=== PATIENT | male | born 1955 | race Caucasian/White ===

== ENCOUNTER 2023-12-04 17:07 | Inpatient (IN) | payer SELFPAY ==
[~2023-12-04] VITALS: Ht 185.4 cm; Wt 112.6 kg
[2023-12-04 17:50] LABS: BASO % 0.5 % (0.0-2.0); EOS # 0.1 K/mm3 (0.0-0.7); EOS % 0.9 % (0.0-4.0); GRAN # 5.9 K/mm3 (1.4-6.5); GRAN % 77.5 % (42.2-75.2); HEMATOCRIT 51.1 % (42.0-52.0); HEMOGLOBIN 16.6 g/dl (13.5-18.0); LYMPH # 0.9 K/mm3 (1.2-3.4); LYMPH % 12.2 % (20.0-51.0); MEAN CELL VOLUME 88 fl (80.0-100.0); MEAN CORPUSCULAR HEMOGLOBIN 28 pg (27-31); MEAN CORPUSCULAR HGB CONC 33 g/dl (33.0-37.0); MEAN PLATELET VOLUME 11.8 fl (7.4-10.4); MONO # 0.7 K/mm3 (0.1-0.6); MONO % 8.6 % (1.7-9.3); PLATELET COUNT 234 K/mm3 (130-400); RED BLOOD COUNT 5.84 M/mm3 (4.20-5.60); REDCELL DISTRIBUTION WIDTH-CV 17.2 % (11.5-14.5)
[2023-12-04 18:03] LABS: ALBUMIN 3.7 g/dL (3.4-4.8); BILIRUBIN,TOTAL 1.8 mg/dL (0.2-1.2); CALCIUM 9.5 mg/dL (8.4-10.2); CREATININE, serum 1.23 mg/dL (0.72-1.25); POTASSIUM 4.1 mEq/L (3.5-4.5); TOTAL PROTEIN 6.7 g/dl (6.2-8.1)
[2023-12-04 18:10] LABS: TROPONIN-I 0.124 ng/mL (0.00-0.033)
[2023-12-04] MEDS ORDERED: Furosemide 40 MG/4 ML VIAL IV ONE (18:45)
[2023-12-04] MEDS ORDERED: Nitroglycerin 2% Topical Oint 1 GM UD TD ONE (19:00)
[2023-12-04] MEDS ORDERED: Ondansetron 4 MG/2 ML VIAL IV PRN (19:15)
[2023-12-04] MEDS ORDERED: Docusate Sodium 100 MG CAP PO PRN (19:15)
[2023-12-04] MEDS ORDERED: Acetaminophen 325 MG TAB PO PRN (19:15)
[2023-12-04] MEDS ORDERED: Polyethylene Glycol 3350 17 GM PDS PO PRN (19:15)
[2023-12-04] MEDS ORDERED: Lisinopril 20 MG TAB PO SCH (20:20)
[2023-12-04 22:50] VITALS: BP 180/117; PULSE 96; TEMP 98.5
[2023-12-04] MEDS ORDERED: LASIX 20MG TABL20 MG PO (22:51)
[2023-12-04] MEDS ORDERED: Metoprolol Tartrate 5 MG/5 ML VIAL IV ONE (23:00)
--- NOTE | 2023-12-04 23:24 | NUR ---
pt arrived to room 348 from ED at 2250. pt ambulated to bed independently without issue. pt noted to have dyspnea on exertion but not at rest. pt LSCTA except diminished in bases. pt alert and oriented x4. pt abd noted to be firm, distended, and red. pt pedal pulses audible with doppler but not palpable d/t BLE +2 pitting edema. BLE noted to be red as well but pt reports this as normal after wearing TEDS. pt IV INT to L AC. admission, physical assessment, and med rec complete. pt noted to have HTN of 180/117. updated hospitalist, Seven SENIOR FINANCE MANAGER. New order for 5mg IV Metoprolol now, administered per orders. pt denies pain. call light in reach. all needs met at this time.
--- NOTE | 2023-12-04 23:32 | NUR ---
critical trop of 0.113 called to hospitalist ELECTRICIAN CONSTRUCTOR SUPERVISORSeven.
[2023-12-05] VITALS (16 sets, daily range): BP systolic 160–188; BP diastolic 94–136; PULSE 71–88; TEMP 97.4–98.2
[2023-12-05] MEDS ORDERED: Heparin 5,000 UNITS/ML 1 ML VIAL SQ SCH
--- NOTE | 2023-12-05 05:23 | NUR ---
pt HTN reported to hospitalist TALENT ACQUISITION PARTNER Seven. TALENT ACQUISITION PARTNER stated to give 0900 Lisinopril now. administered per TALENT ACQUISITION PARTNER orders.
[2023-12-05] MEDS ORDERED: Furosemide 40 MG/4 ML VIAL IV SCH ×2 (05:52→14:00)
--- NOTE | 2023-12-05 06:07 | NUR ---
updated hospitalist TIMBER PACKER Seven on pt BP.
[2023-12-05 06:43] LABS: ALBUMIN 3.3 g/dL (3.4-4.8); CALCIUM 8.8 mg/dL (8.4-10.2); CREATININE, serum 1.16 mg/dL (0.72-1.25); POTASSIUM 3.9 mEq/L (3.5-4.5); TOTAL PROTEIN 5.7 g/dl (6.2-8.1)
[2023-12-05 07:09] LABS: BILIRUBIN,TOTAL 1.2 mg/dL (0.2-1.2)
[2023-12-05] MEDS ORDERED: hydrALAZINE 20 MG/ML 1 ML VIAL IV PRN (08:00)
--- NOTE | 2023-12-05 08:24 | NUR ---
Pt BP elevated. I did call and notified Criss OMALLEY. New orders received. Upon entering room to discuss with pt, pts was at bedside. Explained BP being elevated and what medication was ordered. Pts , Danni, stated that hydralazine causes pts BP to go up. She also wants to discuss the heparin prior to him receiving it. I did relay this information to Criss. Pt has no complaints of pain at this time. Reports his back aches at times, but it is chronic. PT is getting up to the restroom independently with no issues or complaints. Pt reports feeling better than when he came in. I did give him a urinal and asked for him to use it so that we can measure I&Os. Informed pt that he will be NPO at this time per cardiology. All questions answered.
--- NOTE | 2023-12-05 08:54 | NUR ---
food service worker met with pt and his , Danni [phone] to discuss intake information. He reports to live with his in [place]. he sees JU Tafoya for PCP needs and obtains medications from [facility] with no difficulties. He reports to be independent with ADLS and uses no DME. He reports his DPOA-HC is his and their plug machine operator has a copy. EFFIE encouraged this to obtain it and bring it in for records. EFFIE inquired if pt has insurance and he reports "I have financial capabilities.." EFFIE inquired about this and if he is going to apply or is familiar to obtain Medicare as the longer he waits, the more they charge in penalties. He reports he does not want to pay "the government monthly." EFFIE left this as is. He has no concerns for mobility. PT/OT Pending EFFIE informed Associate Financial PlannerShiva that pt is a self pay. Discharge Plan: home
[2023-12-05 09:05] LABS: CALCIUM 9.2 mg/dL (8.4-10.2); CHOLESTEROL RISK RATIO 3.4; CREATININE, serum 1.25 mg/dL (0.72-1.25); POTASSIUM 3.8 mEq/L (3.5-4.5)
--- NOTE | 2023-12-05 09:20 | NUR ---
Discussed lab results being back with Criss OMALLEY
--- NOTE | 2023-12-05 10:02 | NUR ---
PT has been off the floor for ketty. Pt just arrived back to the unit. Pt also had his Echo done this morning. Pts has remained with pt.
[2023-12-05] MEDS ORDERED: *Potassium Replacement Protocol MC SCH (13:15)
[2023-12-05] MEDS ORDERED: Potassium Bicarbonate/Citrate 20 MEQ Effervescent TAB PO ONE (13:15)
--- NOTE | 2023-12-05 14:26 | NUR ---
D: Dental Associate stopped by room on rounds. A: Pt was in the bathroom, food service representative spoke to his . No needs right now. P: Dental Associate informed the that if pt needed anything from the food service representative area to let their nurse know. Dental Associate will follow up as needed.
--- NOTE | 2023-12-05 17:58 | NUR ---
Pt doing okay at this time, at bedside. She continues to have several questions all of which I was able to answer. Call light within reach, will continue to monitor
--- NOTE | 2023-12-05 19:48 | NUR ---
RIK Jaime notifed of BP 177/125. TORB IVP Metoprolol 5 mg once now obtained, read back and confirmed.
--- NOTE | 2023-12-05 19:58 | NUR ---
Bedside report received from BEATRIS Salgado. Pt resting in bed with no complaints. Call light within reach.
[2023-12-05] MEDS ORDERED: Metoprolol Tartrate 5 MG/5 ML VIAL IV ONE (20:00)
--- NOTE | 2023-12-05 20:10 | NUR ---
Pt awake in bed upon entry to room. Shift assessment completed. VSS with elevated BP of 177/125. IVP Metoprolol administered as ordered, provided pt education regarding medication. Edema noted in assessment. INT to LAC patent with no swelling, redness, or drainage. Flushes without complications. CHF education book provided to pt and pt stated he read book and had no questions at this time. Telemetry in place. Pt ambulates in room independently with no complications. Pt denies pain at this time rating 0/10. Pt has no request at this time. Call light within reach.
--- NOTE | 2023-12-05 23:54 | NUR ---
CALL CENTER PROFESSIONAL Santi notifed of BP 170s/120s. TORB for IVP Labetolol 10 mg once now obtained. Read back to provider and confirmed.
[2023-12-06] VITALS (22 sets, daily range): BP systolic 159–195; BP diastolic 91–126; PULSE 66–94; TEMP 97.4–97.9
--- NOTE | 2023-12-06 01:15 | NUR ---
REPORT RECEIVED FROM BEATRIS MCGEE. ASSUMED PT CARE AT THIS TIME. PT RESTING IN ROOM, REPORTS NO NEEDS.
[2023-12-06 06:37] LABS: BASO # 0.1 K/mm3 (0.0-0.2); EOS # 0.1 K/mm3 (0.0-0.7); EOS % 1.6 % (0.0-4.0); GRAN # 3.4 K/mm3 (1.4-6.5); GRAN % 66.5 % (42.2-75.2); HEMATOCRIT 44.8 % (42.0-52.0); HEMOGLOBIN 15.2 g/dl (13.5-18.0); LYMPH % 20.1 % (20.0-51.0); MEAN CELL VOLUME 84 fl (80.0-100.0); MEAN CORPUSCULAR HEMOGLOBIN 29 pg (27-31); MEAN CORPUSCULAR HGB CONC 34 g/dl (33.0-37.0); MEAN PLATELET VOLUME 11.7 fl (7.4-10.4); MONO # 0.5 K/mm3 (0.1-0.6); MONO % 10.4 % (1.7-9.3); PLATELET COUNT 200 K/mm3 (130-400); RED BLOOD COUNT 5.34 M/mm3 (4.20-5.60); REDCELL DISTRIBUTION WIDTH-CV 16.3 % (11.5-14.5)
[2023-12-06 07:12] LABS: ALBUMIN 3.4 g/dL (3.4-4.8); BILIRUBIN,TOTAL 1.4 mg/dL (0.2-1.2); CALCIUM 9.1 mg/dL (8.4-10.2); CREATININE, serum 1.17 mg/dL (0.72-1.25); MAGNESIUM 1.8 mg/dL (1.6-2.6); POTASSIUM 3.7 mEq/L (3.5-4.5); TOTAL PROTEIN 5.8 g/dl (6.2-8.1)
--- NOTE | 2023-12-06 07:59 | NUR ---
Patient awake, alert and oriented. Awaiting stress test this AM, NPO in preparation. Denies chest pain, lightheadedness or shortness of breath. Voiding easily. In bed, call light within reach. Bed in lowest position.
[2023-12-06] MEDS ORDERED: Spironolactone 25 MG TAB PO SCH (08:00)
--- NOTE | 2023-12-06 08:10 | NUR ---
Pt off the floor to nuc med
[2023-12-06] MEDS ORDERED: Regadenoson 0.08 MG/ML 5 ML SYRINGE IV SCH (08:20)
[2023-12-06] MEDS ORDERED: amLODIPine 5 MG TAB PO SCH (09:00)
[2023-12-06] MEDS ORDERED: amLODIPine 10 MG TAB PO SCH (09:00)
[2023-12-06] MEDS ORDERED: Cyanocobalamin (Vit B-12) 1,000 MCG TAB PO SCH (09:00)
[2023-12-06] MEDS ORDERED: Potassium Bicarbonate/Citrate 20 MEQ Effervescent TAB PO SCH (09:45)
--- NOTE | 2023-12-06 10:18 | NUR ---
Cardiology (Sarah) notified of high blood pressure. See orders.
--- NOTE | 2023-12-06 13:26 | NUR ---
EFFIE notes PT/OT signed off on pt. EFFIE spoke with NING Torres who met with pt to further discuss Medicare and benefits long-term as he has CHF and will need future close follow-ups. Pt was amendable to discussing this further with spouse. Discharge Plan: home
[2023-12-07 00:50] LABS: CALCIUM 9.2 mg/dL (8.4-10.2); CREATININE, serum 1.07 mg/dL (0.72-1.25); MAGNESIUM 1.8 mg/dL (1.6-2.6); POTASSIUM 3.4 mEq/L (3.5-4.5)
[2023-12-07 03:10] VITALS: BP 167/105; PULSE 68; TEMP 97.8
[2023-12-07 03:30] VITALS: BP_SYST 167
[2023-12-07] MEDS ORDERED: Potassium Bicarbonate/Citrate 20 MEQ Effervescent TAB PO SCH (04:30)
--- NOTE | 2023-12-07 05:15 | NUR ---
ASSESSMENT COMPLETE FOR HEALTH INSURANCE ASSESSOR. pt DENIED GENERAL PAIN, CHEST PAIN, PALPITATIONS, SOB, N,V,D OR DIZZINESS. pt CONTINUES WITH ELEVATED B/P'S. HOSPITALIST CALLED. WILL CONTINUE TO MONITOR. CALL LIGHT WITHIN REACH.
[2023-12-07 07:17] LABS: BASO # 0.1 K/mm3 (0.0-0.2); BASO % 0.9 % (0.0-2.0); EOS # 0.2 K/mm3 (0.0-0.7); EOS % 2.8 % (0.0-4.0); GRAN # 3.5 K/mm3 (1.4-6.5); GRAN % 65.5 % (42.2-75.2); HEMOGLOBIN 15.9 g/dl (13.5-18.0); LYMPH # 1.1 K/mm3 (1.2-3.4); LYMPH % 20.8 % (20.0-51.0); MEAN CELL VOLUME 85 fl (80.0-100.0); MEAN CORPUSCULAR HEMOGLOBIN 29 pg (27-31); MEAN CORPUSCULAR HGB CONC 34 g/dl (33.0-37.0); MEAN PLATELET VOLUME 11.3 fl (7.4-10.4); MONO # 0.5 K/mm3 (0.1-0.6); MONO % 9.8 % (1.7-9.3); PLATELET COUNT 227 K/mm3 (130-400); RED BLOOD COUNT 5.52 M/mm3 (4.20-5.60); REDCELL DISTRIBUTION WIDTH-CV 16.1 % (11.5-14.5)
[2023-12-07 07:26] VITALS: BP 163/118; PULSE 73; TEMP 97.3
[2023-12-07 07:34] LABS: ALBUMIN 3.7 g/dL (3.4-4.8); BILIRUBIN,TOTAL 1.7 mg/dL (0.2-1.2); CALCIUM 9.4 mg/dL (8.4-10.2); CREATININE, serum 1.24 mg/dL (0.72-1.25); MAGNESIUM 2.2 mg/dL (1.6-2.6); TOTAL PROTEIN 6.6 g/dl (6.2-8.1)
--- NOTE | 2023-12-07 08:00 | NUR ---
Patient sitting up on the bench by the window, in the recliner. A&Ox4. VSS. IV CDI. Denies pain and discomfort. Call light within reach
--- NOTE | 2023-12-07 10:41 | NUR ---
SW met with patient and his (Argelia Stevens [phone]) was present and aided with intake and discussion with discharge planning. Patient resides in [place] with . PCP is Carolina Tafoya APRN and pharmacy of choice is [facility] in [place]. Currently patient does not report any DMEs and reports that he is independent with ADLs. Patient' informed SW that DPOA was completed at admissions. Patients as some concerns with care, informed SW about bed monitoring and call button was not working last night, some concerns with vital documentation from night report and inquiring on his plan of care. SW will follow up with patients nurse on this matter and update patient/patient with info. Patients also inquired about the patient portal, she was informed email would come to her to sent up and she still has not receieved. SW will gather information for her to see about getting another request made for set up. Discharge plan: home with
[2023-12-07] MEDS ORDERED: Dapagliflozin 10 MG **** subs to Empagliflozin 10 MG PO SCH (11:09)
[2023-12-07 11:11] VITALS: BP 155/100; PULSE 71; TEMP 97.6
[2023-12-07] MEDS ORDERED: Empagliflozin 10 MG TAB PO SCH (11:30)
[2023-12-07] MEDS ORDERED: TOPROL XL100 MG PO (12:26)
[2023-12-07] MEDS ORDERED: ZESTRIL 20MG TA20 MG PO (12:26)
[2023-12-07] MEDS ORDERED: ALDACTONE 25MG25 M1 PO (12:27)
[2023-12-07] MEDS ORDERED: ASPIRIN 81M81 MG/TA2 PO (12:27)
[2023-12-07] MEDS ORDERED: JARDIANCE10 PO (12:27)
[2023-12-07] MEDS ORDERED: DEMADEX 20MG20 M1 PO (12:27)
--- NOTE | 2023-12-07 13:20 | NUR ---
Discharge paper reviewed with the patient and at the bedside. Patient verbalized an understanding to follow doctors orders. IV removed, tip intact. Gauze applied. No further needs expressed. No further needs expressed. Patient ambulated independently to the ER entrance.
--- NOTE | 2023-12-07 13:25 | NUR ---
Data: RN recommended Ground Worker visit this Patient. Patient declined a spiritual care visit. Assessment: None. Patient declined. Plan of Care: Patient expecting to discharge soon. Chaplains will remain available as needed/requested while Patient is admitted to this hospital.
[2023-12-07] MEDS ORDERED: LIPITOR20 MG PO (13:39)
[2023-12-07] MEDS ORDERED: Spironolactone 25 MG TAB PO SCH (21:00)
[2023-12-07] MEDS ORDERED: Torsemide 20 MG TAB PO SCH (21:00)
[2023-12-07] MEDS ORDERED: Lisinopril 20 MG TAB PO SCH (21:00)
== END 2023-12-07 13:25 | disposition home or self-care (01) | DRG 291 ==
LOC: COL.ER 17:07 → SURG 19:07 → MEDICAL 19:13 → SURG 19:13 → MEDICAL 12-06 18:02
PROVIDERS: Nurse Practitioner; Physician Assistant; ADMIT Internal Medicine
DX: I11.0 Hypertensive heart disease with heart failure (principal); I50.23 Acute on chronic systolic (congestive) heart failure; E72.12 Methylenetetrahydrofolate reductase deficiency; I47.20 Ventricular tachycardia, unspecified; I08.1 Rheumatic disorders of both mitral and tricuspid valves; I27.20 Pulmonary hypertension, unspecified; I42.9 Cardiomyopathy, unspecified; I16.0 Hypertensive urgency; Z86.73 Personal history of transient ischemic attack (TIA), and cerebral infarction without residual deficits; Z86.16 Personal history of COVID-19
CPT/HCPCS: A9270; A9500-JZ; G0378; J1644; J1920; J1940; J2785; J3475